=== PATIENT | female | born 1965 | race Caucasian/White ===

== ENCOUNTER 2021-12-16 10:37 | Emergency (ER) | payer OTHER, MEDICAID, SELFPAY ==
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
[2021-12-16 10:52] VITALS: BP 153/83; PULSE 88; RESP 21; TEMP 36.9; O2SAT 96
[2021-12-16 10:53] VITALS: BMI 35.2
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
[2021-12-16] MEDS: Ibuprofen 800 MG TABLET PO (11:26)
[2021-12-16] MEDS: LORazepam 1 MG TABLET PO (11:26)
== END 2021-12-16 14:29 | disposition home or self-care (01) ==
PROVIDERS: Emergency Provider Emergency Medicine; PCP Nurse Practitioner Family
DX: S06.0X0A Concussion without loss of consciousness, initial encounter (principal); S00.03XA Contusion of scalp, initial encounter; G44.309 Post-traumatic headache, unspecified, not intractable; V43.52XA Car driver injured in collision with other type car in traffic accident, initial encounter; Y93.9 Activity, unspecified; Y92.410 Unspecified street and highway as the place of occurrence of the external cause; Y99.9 Unspecified external cause status; Z79.899 Other long term (current) drug therapy
CPT/HCPCS: 70450; 93005; 99284